=== PATIENT | female | born 1995 | race Caucasian/White ===

== ENCOUNTER 2019-02-23 07:52 | Outpatient (CLI) | payer OTHER ==
--- NOTE | 2019-02-23 13:00 | NM ---
RADIONUCLIDE GASTRIC EMPTYING SCAN: HISTORY: Nausea, vomiting, weight loss RADIOPHARMACEUTICAL: 2 mCi technetium 99m sulfur colloid administered orally in scrambled eggs. FINDINGS: Gastric emptying at different times is as follows: 1 hour: 70% 2 hours: 88% 3 hours: 91% 4 hours: 94% IMPRESSION: Normal gastric emptying time
== END 2019-02-23 07:53 | disposition home or self-care (01) ==
LOC: NM 07:52
PROVIDERS: ATTEND Internal Medicine Gastroenterology
DX: R11.2 Nausea with vomiting, unspecified (principal)
CPT/HCPCS: 78264; A9541